=== PATIENT | female | born 1995 | race Caucasian/White ===

== ENCOUNTER 2020-08-25 11:26 | Outpatient (RCR) | payer OTHER, SELFPAY | END 2020-10-11 23:59 | LOC: IMMUN 11:26 | PROVIDERS: Referring Provider Family Medicine; Visit Provider Family Medicine | DX: Z23 Encounter for immunization (principal) | CPT/HCPCS: 0001A; 0002A; 91300 ==

== ENCOUNTER → 2023-07-04 | Outpatient (CLI) | payer BC, SELFPAY ==
[2023-07-04 20:38] LABS: Mucous, Urine 0 SEEN /hpf (<or=2+)
[2023-07-04 20:45] LABS: Color, Urine Yellow (Yellow); Glucose, Dipstick Normal (Normal); Ketone-Dipstick Negative (Negative); Leukocyte Esterase-Dipstick 500 /ul (Negative); Nitrite-Dipstick Negative (Negative); Occult Blood-Urine 25 /ul (Negative); Protein-Dipstick Negative (Negative); Specific Gravity, Urine 1.015 (1.002-1.030); Urine Bilirubin Dipstick Negative (Negative); Urine Clarity Clear (Clear); Urine Urobilinogen Normal (Normal); Urine pH 6.5 (5.0 - 8.0)
[2023-07-04 20:54] LABS: Squamous Epithelial Cells - UA 5-10 SEEN /hpf (5-10); White Blood Cells 10-25 SEEN /hpf (0-5)
[2023-07-04 20:55] LABS: Bacteria 1+ /hpf (None Seen); Red Blood Cells-Urine 5-10 SEEN /hpf (0-5)
== END | disposition home or self-care (01) ==
PROVIDERS: PCP Nurse Practitioner; Referring Provider Physician Assistant Surgical; Visit Provider Physician Assistant Surgical
DX: R30.0 Dysuria (principal)
CPT/HCPCS: 81001; 87086

== ENCOUNTER → 2024-03-27 | Outpatient (CLI) | payer BC, SELFPAY | END | disposition home or self-care (01) | PROVIDERS: PCP Nurse Practitioner; Referring Provider Physician Assistant Surgical; Visit Provider Physician Assistant Surgical | DX: R30.0 Dysuria (principal) | CPT/HCPCS: 87086; 87088 ==